=== PATIENT | female | born 1980 | race Two or more races ===

== ENCOUNTER 2020-01-06 00:23 | Emergency (ER) | payer SELFPAY ==
[~2020-01-06] VITALS: Ht 157.5 cm; Wt 81.8 kg
[2020-01-06 00:34] VITALS: BP 132/75
--- NOTE | 2020-01-06 00:55 | PHYS DOC ---
General Adult EDM: Chief Complaint: EARACHE/EAR PAIN HPI: HPI: History is limited due to patient not speaking Cymra[place] and understanding very little of it. Her is bedside who speaks minimal [place]. History obtained largely from . Yuly Williamson is a 39-year-old female who presents with bilateral earache. The pain began about 4 days ago and was primarily left-sided, but has worsened and is now bilateral and rated 8 out of 10. She was seen at another facility for this issue and started on Keflex and Corticosporin otic but the pain has worsened. Review of Systems: Review of Systems: Constitutional: Denies fever or chills Eyes: Denies redness or eye pain HENT: Denies nasal congestion or sore throat; affirms ear ache Respiratory: Denies cough or shortness of breath Cardiovascular: Denies chest pain or palpitations GI: Denies abdominal pain, nausea, or vomiting : Denies dysuria or hematuria Musculoskeletal: Denies back pain or joint pain Integument: Denies rash or skin lesions Neurologic: Denies headache, focal weakness or sensory changes Complete systems were reviewed and found to be within normal limits, except as documented in this note. Allergies: Allergies: Allergies Coded Allergies Type Severity Reaction Last Updated Verified No Known Drug Allergies 01/06/20 No Physical Exam: PE: Constitutional: Well developed, well nourished, no acute distress, non-toxic appearance HENT: Normocephalic, atraumatic; bilateral external auditory canals are edematous, tympanic membranes are not able to be visualized bilaterally, tenderness to manipulation of the pinna bilaterally Eyes: PERRL, EOMI, conjunctiva normal, no discharge Neck: Normal range of motion, no tenderness, supple Lungs & Thorax: No respiratory distress, equal chest rise and fall Abdomen: Soft, no tenderness Skin: Warm, dry, no erythema, no rash Back: No tenderness, no CVA tenderness Extremities: No tenderness, ROM intact, no edema Neurologic: Alert and oriented X 3, normal motor function, normal sensory function, no focal deficits noted Psychologic: Affect normal, judgment normal Course & Med Decision Making: Course & Med Decision Making Patient presented with bilateral ear infection as described above. Physical exam indicates likely worsening otitis externa. Given the ongoing nature of this patient's complaints, antibiotic will be switched from Keflex to ciprofloxacin. Corticosteroid otic will be continued with administration of 4 drops 4 times daily. Ear wick is put in place in the emergency department, with instructions to leave in place and they will fall out on their own. Instructions were transmitted to patient's who seems to be on board with plan at this moment. Patient's pain rated at 8 out of 10 will be controlled with 600 mg ibuprofen to hopefully reduce external auditory canal swelling as well. Dragon Disclaimer: Dragon Disclaimer: This electronic medical record was generated, in whole or in part, using a voice recognition dictation system. Departure Departure Impression: Primary Impression: Bilateral otitis externa Qualified Codes: H60.503 - Unspecified acute noninfective otitis externa, bilateral Disposition: 01 HOME SELF CARE/HOMELESS Condition: STABLE Patient Instructions: Otitis Externa, [id number] Additional Instructions: Leave ear long in place, they will fall out on their own. Increase ear drops use to 4 drops to each ear 4 times per day. DISCONTINUE use of KEFLEX. START new oral antibiotic as prescribed. Scripts Ibuprofen (IBUPROFEN) 600 Mg Tablet 600 MG PO PRN Q6HRS PRN for PAIN, #20 TAB Prov: SHELBIE GARG DO 01/06/20 Ciprofloxacin Hcl (CIPRO) 500 Mg Tablet 1 TAB PO BID for 7 Days, #14 TAB Prov: SHELBIE GARG DO 01/06/20 SHELBIE GARG DO Jan 06, 2020 00:55
[2020-01-06] MEDS ORDERED: CIPR500T94 PO (00:58)
[2020-01-06] MEDS ORDERED: IBUP-1007 PO (00:58)
[2020-01-06] MEDS ORDERED: DEXAMETHASONE SOD PHOS 20 MG/5 ML VIAL. IM ONE (01:00)
[2020-01-06] MEDS ORDERED: CIPROFLOXACIN HCL 250 MG TABLET. PO ONE (01:00)
[2020-01-06] MEDS ORDERED: IBUPROFEN 200 MG TABLET. PO ONE (01:00)
== END 2020-01-06 01:06 | disposition home or self-care (01) ==
LOC: ER 00:23
DX: H60.8X3 Other otitis externa, bilateral (principal); R60.0 Localized edema
CPT/HCPCS: 96372; 99283; J1100